=== PATIENT | female | born 2000 | race Caucasian/White ===

== ENCOUNTER 2020-04-13 03:07 | Emergency (ER) | payer OTHER, SELFPAY ==
[2020-04-13] MEDS ORDERED: NS 1,000 ML IV ONE (03:15)
[2020-04-13 03:22] LABS: BASO # 0.1 10^3/uL (0.0-0.2); BASO % 0.8 % (0.0-1.0); EOS % 0.5 % (0.0-3.0); HEMATOCRIT 43.1 % (36.0-47.0); HEMOGLOBIN 13.7 g/dl (12.0-15.5); LYMPH # 2.4 10^3/uL (1.5-5.0); LYMPH % 31.7 % (24.0-44.0); MEAN CORPUSCULAR HEMOGLOBIN 30.9 pg (27.0-33.0); MEAN CORPUSCULAR HGB CONC 31.8 g/dl (32.0-36.5); MEAN CORPUSCULAR VOLUME 97.1 fl (80.0-96.0); MONO # 0.4 10^3/uL (0.0-0.8); MONO % 5.8 % (0.0-5.0); NEUTROPHILS # 4.6 10^3/uL (1.5-8.5); NEUTROPHILS % 60.5 % (36.0-66.0); PLATELET COUNT, AUTOMATED 229 10^3/uL (150-450); RED BLOOD COUNT 4.44 10^6/uL (4.00-5.40); WHITE BLOOD COUNT 7.5 10^3/uL (4.0-10.0)
[2020-04-13 04:03] LABS: AMPHETAMINES LEVEL URINE NEGATIVE (NEGATIVE); BARBITURATES URINE NEGATIVE (NEGATIVE); BENZODIAZEPINES URINE NEGATIVE (NEGATIVE); CANNABINOIDS URINE NEGATIVE (NEGATIVE); COCAINE METABOLITE URINE NEGATIVE (NEGATIVE); METHADONE URINE NEGATIVE (NEGATIVE); OPIATES URINE NEGATIVE (NEGATIVE); PHENCYCLIDINE URINE NEGATIVE (NEGATIVE)
[2020-04-13 04:16] LABS: HCG, SERUM QUALITATIVE NEGATIVE (NEGATIVE)
[2020-04-13 04:32] LABS: ACETAMINOPHEN LEVEL < 2.0 UG/ML (10.0-30.0); ALT/SGPT 26 U/L (12-78); BILIRUBIN,DIRECT < 0.1 MG/DL (0.0-0.2); BILIRUBIN,TOTAL 0.2 MG/DL (0.2-1.0); BLOOD UREA NITROGEN 6 MG/DL (7-18); CALCIUM LEVEL 8.1 MG/DL (8.5-10.1); CARBON DIOXIDE LEVEL 24 MEQ/L (21-32); CHLORIDE LEVEL 109 MEQ/L (98-107); CPK CREATINE PHOSPHOKINASE 150 U/L (26-192); CREATININE FOR GFR 0.86 MG/DL (0.55-1.30); ETHYL ALCOHOL (ETHANOL) 0.251 % (0.000-0.010); GLUCOSE, FASTING 119 MG/DL (70-100); POTASSIUM SERUM 3.6 MEQ/L (3.5-5.1); SALICYLATE LEVEL < 1.7 MG/DL (5.0-30.0); SODIUM LEVEL 142 MEQ/L (136-145); TOTAL PROTEIN 7.2 GM/DL (6.4-8.2)
[2020-04-13 05:02] LABS: RSV AMPLIFICATION NEGATIVE (NEGATIVE)
--- NOTE | 2020-04-13 08:59 | ECGEPIP ---
[facility] - ED Test Date: 2020-04-13 Pat Name: NICK HARP Department: Room: - Gender: Female L D Rn: brittney : 2000 Requested By: HÉCTOR De Leon Order Number: [id number] Reading MD: Romelia Souza Measurements Intervals [place] Rate: 102 P: 62 VA: 154 QRS: 47 QRSD: 96 T: 53 QT: 350 QTc: 457 Interpretive Statements SINUS TACHYCARDIA ABNORMAL RHYTHM ECG No prior Electronically Signed on 04-13-2020 8:59:16 EST by Romelia Souza
[2020-04-13 09:35] VITALS: BP 104/56
== END 2020-04-13 09:49 | disposition home or self-care (01) ==
LOC: M ED 03:07
DX: F10.229 Alcohol dependence with intoxication, unspecified (principal); Y90.1 Blood alcohol level of 20-39 mg/100 ml
CPT/HCPCS: 36600; 80048; 80076; 80307; 82550; 82803; 84443; 84703; 85025; 87631; 93005; 93041; 94760; 96360; 99285; G0480

== ENCOUNTER 2020-05-30 18:23 | Emergency (ER) | payer OTHER ==
[~2020-05-30] VITALS: Ht 170.2 cm; Wt 76.4 kg
[2020-05-30 19:00] VITALS: O2SAT 99
[2020-05-30] MEDS ORDERED: ONDANSETRON 4MG/2ML VIAL IV ONE (19:00)
[2020-05-30] MEDS ORDERED: NS 1,000 ML IV ONE (19:00)
[2020-05-30] MEDS ORDERED: MORPHINE 4 MG/ML 1ML VIAL/SYRINGE (J2270) IV ONE (19:00)
[2020-05-30 19:30] LABS: BASO % 0.4 % (0.0-1.0); EOS % 0.3 % (0.0-3.0); HEMATOCRIT 39.9 % (36.0-47.0); HEMOGLOBIN 13.1 g/dl (12.0-15.5); LYMPH # 1.8 10^3/uL (1.5-5.0); LYMPH % 26.3 % (24.0-44.0); MEAN CORPUSCULAR HEMOGLOBIN 31.3 pg (27.0-33.0); MEAN CORPUSCULAR HGB CONC 32.8 g/dl (32.0-36.5); MEAN CORPUSCULAR VOLUME 95.5 fl (80.0-96.0); MONO # 0.4 10^3/uL (0.0-0.8); MONO % 6.3 % (0.0-5.0); NEUTROPHILS # 4.6 10^3/uL (1.5-8.5); NEUTROPHILS % 66.4 % (36.0-66.0); PLATELET COUNT, AUTOMATED 196 10^3/uL (150-450); RED BLOOD COUNT 4.18 10^6/uL (4.00-5.40); WHITE BLOOD COUNT 6.9 10^3/uL (4.0-10.0)
--- OUTSIDE RECORDS SUMMARY | 2020-05-30 19:39 | CCD ---
Author Author [facility] Address Unknown Phone Unavailable Support Name Relationship Address Phone EXMAURIZIO SPEARS Next Of Kin [address] [place] [address] [place] [address] [place] Re-disclosure Warning The records that you are about to access may contain information from federally-assisted alcohol or drug abuse programs. If such information is present, then the following federally mandated warning applies: This information has been disclosed to you from records protected by federal confidentiality rules (42 CFR part 2). The federal rules prohibit you from making any further disclosure of this information unless further disclosure is expressly permitted by the written consent of the person to whom it pertains or as otherwise permitted by 42 CFR part 2. A general authorization for the release of medical or other information is NOT sufficient for this purpose. The Federal rules restrict any use of the information to criminally investigate or prosecute any alcohol or drug abuse patient.The records that you are about to access may contain highly sensitive health information, the redisclosure of which is protected by Article 27-F of the [facility] Public Health law. If you continue you may have access to information: Regarding HIV / AIDS; Provided by facilities licensed or operated by the [facility] Office of Mental Health; or Provided by the [facility] Office for People With Developmental Disabilities. If such information is present, then the following [facility] mandated warning applies: This information has been disclosed to you from confidential records which are protected by state law. State law prohibits you from making any further disclosure of this information without the specific written consent of the person to whom it pertains, or as otherwise permitted by law. Any unauthorized further disclosure in violation of state law may result in a fine or snf sentence or both. A general authorization for the release of medical or other information is NOT sufficient authorization for further disc losure. Medications Medication Brand Name Start Date Product Form Dose Route Admi nistrative Instructions Pharmacy Instructions Status Indications Reaction Description Data Source(s) 150 mg/mL 07/26/2019 12:00:00 AM EDT suspension 1 INJECT INTRAMUSCULARLY EVERY 3 MONTHS INJECT INTRAMUSCULARLY EVERY 3 MONTHS SOLD: 07/26/2019 [facility] 5-325 mg 06/13/2019 12:00:00 AM EST tablet 15 TAKE 1-2 TABLETS BY MOUTH EVERY 4-6 HOURS NEEDED MAXIMUM DAILY DOSE = 5 TABLETS TAKE 1-2 TABLETS BY MOUTH EVERY 4-6 HOURS NEEDED MAXIMUM DAILY DOSE = 5 TABLETS SOLD: 06/13/2019 [facility] Insurance Providers Payer name Policy type / Coverage type Policy ID Covered alliance party ID Covered alliance party's relationship to montes Policy Montes Plan Information [facility] [id number] [facility] [id number] SP [id number] SELF PAY ONLY [id number] SP [id number] Results ID Date Data Source [id number] 05/26/2020 12:00:00 AM EST [facility] Name Value Range Interpretation Code Description Data Aimee rce(s) Supporting Document(s) SARS coronavirus 2 Ag Positive [facility] This lab was ordered by [facility] and reported by [facility]. ID Date Data Source [id number] 05/13/2020 02:04:00 PM EST [facility] Name Value Range Interpretation Code Description Data Aimee rce(s) Supporting Document(s) 2018-NCOV RNA XXX KATARZYNA+PROBE-IMP Not Detected [facility] This lab was ordered by [facility] and reported by [facility]. ID Date Data Source [id number] 05/08/2020 03:20:00 PM EST [facility] Name Value Range Interpretation Code Description Data Aimee rce(s) Supporting Document(s) 2018-NCOV RNA XXX KATARZYNA+PROBE-IMP Not Detected [facility] This lab was ordered by [facility] and reported by [facility]. ID Date Data Source [id number] 04/24/2020 02:56:00 PM EST [facility] Name Value Range Interpretation Code Description Data Aimee rce(s) Supporting Document(s) 2018-NCOV RNA XXX KATARZYNA+PROBE-IMP [facility] This lab was ordered by [facility] and reported by [facility]. ID Date Data Source [id number] 04/17/2020 06:00:00 PM EST [facility] Name Value Range Interpretation Code Description Data Aimee rce(s) Supporting Document(s) SARS coronavirus 2 RNA [facility] This lab was ordered by [facility] and reported by [facility]. ID Date Data Source [id number] 04/11/2020 06:00:00 PM EST [facility] Name Value Range Interpretation Code Description Data Aimee rce(s) Supporting Document(s) SARS coronavirus 2 RNA [facility] This lab was ordered by [facility] and reported by [facility]. ID Date Data Source [id number] 04/04/2020 01:50:00 AM EST [facility] Name Value Range Interpretation Code Description Data Aimee rce(s) Supporting Document(s) SARS coronavirus 2 RNA [facility] This lab was ordered by [facility] and reported by [facility]. ID Date Data Source [id number] 03/17/2020 01:50:00 PM EST [facility] Name Value Range Interpretation Code Description Data Aimee rce(s) Supporting Document(s) SARS coronavirus 2 RNA [facility] This lab was ordered by [facility] and reported by [facility]. ID Date Data Source [id number] 03/12/2020 01:51:00 PM EST [facility] Name Value Range Interpretation Code Description Data Aimee rce(s) Supporting Document(s) SARS coronavirus 2 RNA [facility] This lab was ordered by [facility] and reported by [facility]. ID Date Data Source [id number] 03/03/2020 01:50:00 PM EST [facility] Name Value Range Interpretation Code Description Data Aimee rce(s) Supporting Document(s) SARS coronavirus 2 RNA [facility] This lab was ordered by [facility] and reported by [facility]. ID Date Data Source [id number] 02/25/2020 01:54:00 PM EDT [facility] Name Value Range Interpretation Code Description Data Aimee rce(s) Supporting Document(s) SARS coronavirus 2 RNA [facility] This lab was ordered by [facility] and reported by [facility]. ID Date Data Source [id number] 02/18/2020 01:25:00 PM EDT [facility] Name Value Range Interpretation Code Description Data Aimee rce(s) Supporting Document(s) SARS coronavirus 2 RNA [facility] This lab was ordered by [facility] and reported by [facility]. ID Date Data Source [id number] 02/11/2020 01:50:00 PM EDT [facility] Name Value Range Interpretation Code Description Data Aimee rce(s) Supporting Document(s) SARS coronavirus 2 RNA [facility] This lab was ordered by [facility] and reported by [facility]. ID Date Data Source [id number] 02/04/2020 01:00:00 PM EDT [facility] Name Value Range Interpretation Code Description Data Aimee rce(s) Supporting Document(s) SARS coronavirus 2 RNA [facility] This lab was ordered by [facility] and reported by [facility]. ID Date Data Source [id number] 01/28/2020 01:15:00 PM EDT [facility] Name Value Range Interpretation Code Description Data Aimee rce(s) Supporting Document(s) SARS coronavirus 2 RNA [facility] This lab was ordered by [facility] and reported by [facility]. ID Date Data Source [id number] 01/21/2020 01:50:00 PM EDT [facility] Name Value Range Interpretation Code Description Data Aimee rce(s) Supporting Document(s) SARS coronavirus 2 RNA [facility] This lab was ordered by [facility] and reported by [facility]. ID Date Data Source [id number] 01/14/2020 01:52:00 PM EDT [facility] Name Value Range Interpretation Code Description Data Aimee rce(s) Supporting Document(s) SARS coronavirus 2 RNA [facility] This lab was ordered by [facility] and reported by [facility]. ID Date Data Source [id number] 01/09/2020 01:52:00 PM EDT [facility] Name Value Range Interpretation Code Description Data Aimee rce(s) Supporting Document(s) SARS coronavirus 2 RNA [facility] This lab was ordered by [facility] and reported by [facility]. ID Date Data Source [id number] 01/07/2020 01:50:00 PM EDT [facility] Name Value Range Interpretation Code Description Data Aimee rce(s) Supporting Document(s) SARS coronavirus 2 RNA [facility] This lab was ordered by [facility] and reported by [facility]. ID Date Data Source [id number] 01/04/2020 01:50:00 PM EDT [facility] Name Value Range Interpretation Code Description Data Aimee rce(s) Supporting Document(s) SARS coronavirus 2 RNA [facility] This lab was ordered by [facility] and reported by [facility]. ID Date Data Source [id number] 12/31/2019 01:55:00 PM EDT [facility] Name Value Range Interpretation Code Description Data Aimee rce(s) Supporting Document(s) SARS coronavirus 2 RNA [facility] This lab was ordered by [facility] and reported by [facility]. ID Date Data Source [id number] 12/25/2019 01:50:00 PM EDT [facility] Name Value Range Interpretation Code Description Data Aimee rce(s) Supporting Document(s) SARS coronavirus 2 RNA [facility] This lab was ordered by [facility] and reported by [facility]. ID Date Data Source [id number] 12/17/2019 01:55:00 PM EDT [facility] Name Value Range Interpretation Code Description Data Aimee rce(s) Supporting Document(s) SARS coronavirus 2 RNA [facility] This lab was ordered by [facility] and reported by [facility]. ID Date Data Source [id number] 12/11/2019 01:55:00 PM EDT [facility] Name Value Range Interpretation Code Description Data Aimee rce(s) Supporting Document(s) SARS coronavirus 2 RNA [facility] This lab was ordered by [facility] and reported by [facility]. ID Date Data Source [id number] 12/03/2019 01:50:00 PM EDT [facility] Name Value Range Interpretation Code Description Data Aimee rce(s) Supporting Document(s) SARS coronavirus 2 RNA [facility] This lab was ordered by [facility] and reported by [facility]. ID Date Data Source [id number] 11/27/2019 02:25:00 AM EDT [facility] Name Value Range Interpretation Code Description Data Aimee rce(s) Supporting Document(s) SARS coronavirus 2 RNA [facility] This lab was ordered by [facility] and reported by [facility]. ID Date Data Source [id number] 11/19/2019 01:50:00 PM EDT [facility] Name Value Range Interpretation Code Description Data Aimee rce(s) Supporting Document(s) SARS coronavirus 2 RNA [facility] This lab was ordered by [facility] and reported by [facility]. ID Date Data Source [id number] 11/13/2019 12:30:00 PM EDT [facility] Name Value Range Interpretation Code Description Data Aimee rce(s) Supporting Document(s) SARS coronavirus 2 RNA [facility] This lab was ordered by [facility] and reported by [facility]. ID Date Data Source [id number] 10/29/2019 01:55:00 PM EDT [facility] Name Value Range Interpretation Code Description Data Aimee rce(s) Supporting Document(s) SARS CORONAVIRUS 2 RNA [facility] This lab was ordered by [facility] and reported by [facility]. ID Date Data Source [id number] 10/22/2019 02:00:00 PM EDT [facility] Name Value Range Interpretation Code Description Data Aimee rce(s) Supporting Document(s) SARS CORONAVIRUS 2 RNA [facility] This lab was ordered by [facility] and reported by [facility]. ID Date Data Source [id number] 10/15/2019 01:55:00 PM EDT [facility] Name Value Range Interpretation Code Description Data Aimee rce(s) Supporting Document(s) SARS CORONAVIRUS 2 RNA [facility] This lab was ordered by [facility] and reported by [facility]. ID Date Data Source [id number] 10/08/2019 01:51:00 PM EDT [facility] Name Value Range Interpretation Code Description Data Aimee rce(s) Supporting Document(s) SARS CORONAVIRUS 2 RNA [facility] This lab was ordered by [facility] and reported by [facility]. ID Date Data Source [id number] 10/03/2019 01:58:00 PM EDT [facility] Name Value Range Interpretation Code Description Data Aimee rce(s) Supporting Document(s) SARS CORONAVIRUS 2 RNA [facility] This lab was ordered by [facility] and reported by [facility]. ID Date Data Source [id number] 10/01/2019 01:55:00 PM EDT [facility] Name Value Range Interpretation Code Description Data Aimee rce(s) Supporting Document(s) SARS CORONAVIRUS 2 RNA [facility] This lab was ordered by [facility] and reported by [facility]. ID Date Data Source [id number] 09/27/2019 10:20:00 AM EDT [facility] Name Value Range Interpretation Code Description Data Aimee rce(s) Supporting Document(s) SARS CORONAVIRUS 2 RNA [facility] This lab was ordered by [facility] and reported by [facility]. ID Date Data Source [id number] 09/25/2019 10:16:00 AM EDT [facility] Name Value Range Interpretation Code Description Data Aimee rce(s) Supporting Document(s) SARS CORONAVIRUS 2 RNA [facility] This lab was ordered by [facility] and reported by [facility]. ID Date Data Source [id number] 09/19/2019 09:56:00 AM EDT [facility] Name Value Range Interpretation Code Description Data Aimee rce(s) Supporting Document(s) SARS CORONAVIRUS 2 RNA [facility] This lab was ordered by [facility] and reported by [facility]. ID Date Data Source [id number] 09/17/2019 01:58:00 PM EDT [facility] Name Value Range Interpretation Code Description Data Aimee rce(s) Supporting Document(s) SARS CORONAVIRUS 2 RNA [facility] This lab was ordered by [facility] and reported by [facility]. ID Date Data Source [id number] 09/14/2019 01:00:00 PM EDT [facility] Name Value Range Interpretation Code Description Data Aimee rce(s) Supporting Document(s) SARS CORONAVIRUS 2 RNA [facility] This lab was ordered by [facility] and reported by [facility]. Procedure
[2020-05-30 19:52] LABS: HCG, SERUM QUALITATIVE NEGATIVE (NEGATIVE)
[2020-05-30 19:53] LABS: ALBUMIN 3.7 GM/DL (3.2-5.2); ALT/SGPT 16 U/L (12-78); BILIRUBIN,DIRECT 0.1 MG/DL (0.0-0.2); BILIRUBIN,TOTAL 0.3 MG/DL (0.2-1.0); BLOOD UREA NITROGEN 12 MG/DL (7-18); CALCIUM LEVEL 9.2 MG/DL (8.5-10.1); CARBON DIOXIDE LEVEL 28 MEQ/L (21-32); CHLORIDE LEVEL 107 MEQ/L (98-107); CREATININE FOR GFR 0.65 MG/DL (0.55-1.30); GLUCOSE, FASTING 85 MG/DL (70-100); LIPASE 95 U/L (73-393); POTASSIUM SERUM 4.7 MEQ/L (3.5-5.1); SODIUM LEVEL 140 MEQ/L (136-145); TOTAL PROTEIN 6.7 GM/DL (6.4-8.2)
[2020-05-30] MEDS: GASTROGRAFIN SOLUTION 30ML PO SCH ×2 (20:43→21:16)
[2020-05-30] MEDS ORDERED: ISOVUE-370 76% 100ML VIAL As Ordered ONE (21:42)
--- NOTE | 2020-05-30 23:24 | REPVR ---
PROCEDURE INFORMATION: Exam: CT Abdomen And Pelvis With Contrast Exam date and time: 05/30/2020 10:46 PM Age: 20 years old Clinical indication: Abdominal pain; Localized; Lower; Additional info: Lower abd pain TECHNIQUE: Imaging protocol: Computed tomography of the abdomen and pelvis with contrast. Radiation optimization: All CT scans at this facility use at least one of these dose optimization techniques: automated exposure control; mA and/or kV adjustment per patient size (includes targeted exams where dose is matched to clinical indication); or iterative reconstruction. Contrast material: ISO; Contrast volume: 100 ml; Contrast route: INTRAVENOUS (IV); COMPARISON: No relevant prior studies available. FINDINGS: Liver: Normal. No mass. Gallbladder and bile ducts: Normal. No calcified stones. No ductal dilation. Pancreas: Normal. No ductal dilation. Spleen: Normal. No splenomegaly. Adrenal glands: Normal. No mass. Kidneys and ureters: Normal. No hydronephrosis. Stomach and bowel: No obstruction. No mucosal thickening. Oral contrast in the bowel. Negative for colonic diverticulitis. Appendix: Appendix is normal. Intraperitoneal space: Small free fluid in the pelvis. No free air. Vasculature: Unremarkable. No abdominal aortic aneurysm. Lymph nodes: Unremarkable. No enlarged lymph nodes. Urinary bladder: Unremarkable as visualized. Reproductive: Uterus is normal. Benign-appearing cyst in the left ovary measuring 2.9 x 2.5 x 2.6 cm. Bones/joints: Unremarkable. No acute fracture. Soft tissues: Unremarkable. IMPRESSION: 1. Cystic lesion in the left ovary. Consistent with ruptured cyst. 2. Small free fluid in the pelvis. Electronically signed by: Wendy Koch On 05/30/2020 23:24:37 PM
[2020-05-31] VITALS: BP 96/58
== END 2020-05-31 00:34 | disposition home or self-care (01) ==
LOC: EDBD 18:23 → M ED 18:23
DX: N83.202 Unspecified ovarian cyst, left side (principal)
CPT/HCPCS: 74177; 80048; 80076; 81001; 83690; 84703; 85025; 93041; 96360; 96361; 99285; Q9963; Q9967

== ENCOUNTER 2021-01-12 23:11 | Emergency (ER) | payer SELFPAY ==
[~2021-01-12] VITALS: Ht 167.6 cm; Wt 68.2 kg
[2021-01-12 23:15] VITALS: BP 125/83
[2021-01-12] MEDS ORDERED: AMIT10TA7 PO (23:30)
== END 2021-01-13 05:17 | disposition left against medical advice (07) ==
LOC: M ED 23:11
DX: Z53.29 Procedure and treatment not carried out because of patient's decision for other reasons (principal)